=== PATIENT | female | born 1930 | race Hispanic/Latino ===

== ENCOUNTER 2018-04-06 08:18 | Outpatient (CLI) | payer MEDICARE ==
--- NOTE | 2018-04-06 11:11 | Cat Scan Report ---
CT CHEST WITHOUT CONTRAST: HISTORY: Chronic cough. COMPARISON: none. TECHNIQUE: Helical CT in 1.25mm intervals without IV contrast. Sagittal and coronal reformatted images. FINDINGS: Thyroid gland: The left thyroid lobe is unremarkable. The right lobe is atrophic or surgically removed. Tracheobronchial tree: Within normal limits. Esophagus: Normal. Heart: Mild cardiomegaly. Pericardium: Small pericardial effusion. Mediastinum: There are moderate calcifications and ectasia of the thoracic aorta. No mediastinal mass or adenopathy is identified. Lung [place]: Within normal limits. No mass or advance interstitial lung disease. Pleural Spaces: Trace bilateral pleural effusions. Musculoskeletal: Osteopenia. Moderate to severe multilevel thoracic spondylosis. IMPRESSION: Mild cardiomegaly and trace pleural effusions. Correlate for minimal CHF. Small pericardial effusion. 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 Osteopenia and degenerative changes in the spine.
== END 2018-04-06 08:19 | disposition home or self-care (01) ==
LOC: CT 08:18
PROVIDERS: ATTEND Internal Medicine
DX: I51.7 Cardiomegaly (principal); I31.3 Pericardial effusion (noninflammatory); I50.9 Heart failure, unspecified; I70.0 Atherosclerosis of aorta; M85.88 Other specified disorders of bone density and structure, other site; M47.899 Other spondylosis, site unspecified
CPT/HCPCS: 71250